=== PATIENT | female | born 1940 | race Two or more races ===

== ENCOUNTER 2018-08-05 13:41 | Emergency (ER) | payer MEDICARE, MEDICAID ==
[2018-08-05 14:18] LABS: HEMATOCRIT 37.4 % (41.0-60); HEMOGLOBIN 12.1 gm/dL (12-16); MEAN CELL VOLUME 83.8 fl (81-100); MEAN CORPUSCULAR HGB CONC 32.2 pg (28.0-36.0); MEAN PLATELET VOLUME 6.7 fl; PLATELET COUNT 221 Th/cmm (150-400); RED BLOOD COUNT 4.47 Mil/cmm (3.80-5.20); RED CELL DISTRIBUTION WIDTH 13.7 % (11.5-20.0); WHITE BLOOD COUNT 10.5 Th/cmm (4.8-10.8)
[2018-08-05] MEDS ORDERED: Acetaminophen 500 MG TAB ONE (14:22)
[2018-08-05] MEDS: Cefepime 1 GM in Sodium Chloride 0.9% 50 ML IV ONE (14:28)
[2018-08-05] MEDS: Lactated Ringer 1,000 ML IV ONE ×2 (14:34→20:23)
[2018-08-05 14:35] LABS: ALB/GLOB RATIO 1.9 (1.0-1.8); ALBUMIN 3.7 gm/dL (3.7-5.3); ALKALINE PHOSPHATASE 58 U/L (34-104); ANION GAP 11.3 (7.0-16.0); BILIRUBIN,TOTAL 0.5 mg/dL (0.3-1.0); BUN - UREA NITROGEN 20 mg/dL (7-25); CALCIUM SERUM 8.4 mg/dL (8.6-10.3); CARBON DIOXIDE 24.6 mEq/L (21.0-31.0); CHLORIDE 102 mEq/L (98-107); GLUCOSE 118 mg/dL (70-105); MAGNESIUM 1.8 mg/dL (1.9-2.7); PHOSPHOROUS 2.7 mg/dL (2.5-5.0); POTASSIUM SERUM 3.9 mEq/L (3.5-5.1); SGOT 12 U/L (13-39); SGPT/ALT 12 U/L (7-52); SODIUM SERUM 134 mEq/L (136-145); TOTAL PROTEIN,SERUM 5.7 gm/dL (6.0-8.3)
[2018-08-05] MEDS ORDERED: IOHEXOL 350mgI/mL 150mL IV ONE (15:13)
[2018-08-05 15:27] LABS: NEUTROPHILS 89 % (40-80)
[2018-08-05 15:28] LABS: BAND NEUTROPHILE 0 % (0-10); BASOPHIL 0 % (0-3); EOSINOPHIL 0 % (0-5); LYMPHOCYTE 4 % (20-50); MONOCYTE 7 % (2-10)
[2018-08-05 17:57] LABS: INF A SCREEN NEG FOR INF A; INF B SCREEN NEG FOR INF B
--- NOTE | 2018-08-05 18:48 | ED Physician Chart ---
ED Chief Complaint/HPI - Patient Information Date Seen:: 08/05/18 Time Seen:: 13:50 Chief Complaint:: SOB History of Present Illness:: SOB in a patient. [employer] paramedics responded to 911 call. Patient was found to be in respiratory distress with O2 sats of 86%. Patient was placed on 15 liters of oxygen. BP normal. Heart rate elevated in 150's. Allergies:: Allergies Allergy/AdvReac Type Severity Reaction Status Date / Time No Known Allergies Allergy Verified 08/05/18 13:58 Vitals:: Vital Signs - 8 hr 08/05/18 13:50 Temp 103.5 F HR 130 RR 16 BP 115/57 O2 Sat % 95 Historian:: Patient, Family Member, Other (paramedics) Review:: Nurse's Note Reviewed, EMS run form Reviewed ED Review of Systems - Review of Systems General/Constitutional: Fever, No chills, No weight loss, No weakness, No diaphoresis, No edema, No loss of appetite, Other (no respiratory distress with 15 liters of oxygen) Skin: No skin lesions, No rash, No bruising Head: No headache, No light-headedness Eyes: No loss of vision, No pain, No diplopia ENT: No earache, No nasal drainage, No sore throat, No tinnitus Neck: No neck pain, No swelling, No thyromegaly, No stiffness, No mass noted Cardio Vascular: No chest pain, No palpitations, No PND, No orthopnea, No edema Pulmonary: SOB, Cough, Sputum, No wheezing GI: No nausea, No vomiting, No diarrhea, No pain, No melena, No hematochezia, No constipation, No hematemesis G/U: No dysuria, No frequency, No hematuria, Other (incontinence of urine.) Musculoskeletal: No bone or joint pain, No back pain, No muscle pain Endocrine: No polyuria, No polydipsia Psychiatric: No prior psych history, No depression, No anxiety, No suicidal ideation Hematopoietic: No bruising, No lymphadenopathy Allergic/Immuno: No urticaria, No angioedema Neurological: No syncope, No focal symptoms, No weakness, No paresthesia, No headache, No seizure, No dizziness, No confusion, No vertigo ED Past Medical History - Past Medical History Obtainable: No Past Medical History: Other (rheumatoid arthritis; COPD) Psychiatricy History: Other (anxiety) Family Medical History - Family Member Mother History Unknown: Yes ED Physical Exam - Physical Examination General/Constitutional: Awake, Well-developed, well-nourished, Alert, No distress, GCS 15, Non-toxic appearing, Ambulatory Other Gen/Cons comments:: no respiratory distress with 15 liters of oxygen mask on. Head: Atraumatic Eyes: Lids, conjuctiva normal, PERRL, EOMI Skin: Nl inspection, No rash, No skin lesions, No ecchymosis, Well hydrated, No lymphadenopathy ENMT: External ears, nose nl Neck: Nontender, No nuchal rigidity, No stridor Other Respiratory comments:: purse lipped breathing. decreased breath sounds at right lung base. no respiratory distress with 15 liters of oxygen on. Cardio Vascular: No murmur, gallop, rubs, NL S1 S2 Other Cardio Vascular comments:: tachycardia. GI: No tenderness/rebounding/guarding, No organomegaly, No hernia, Normal BS's, Nondistended, No mass/bruits, No McBurney tenderness : No CVA tenderness Extremities: No tenderness or effusion, Full ROM, normal strength in all extremities, No edema, Normal digits & nails Neuro/Psych: Alert/oriented, Normal sensory exam, Normal motor strength, Judgement/insight normal, Mood normal, Normal gait, No focal deficits Misc: Normal back, No paraspinal tenderness ED Labs/Radiology/EKG Results - Lab Results Results: Laboratory Tests 08/05/18 08/05/18 08/05/18 14:00 14:00 14:00 WBC 10.5 RBC 4.47 Hgb 12.1 Hct 37.4 L MCV 83.8 MCH 27.0 MCHC Differential 32.2 RDW 13.7 Plt Count 221 MPV 6.7 Add Manual Diff YES Band Neutrophils % 0 Neutrophils (Manual) 89 H Lymphocytes 4 L Monocytes 7 Eosinophils 0 Basophils 0 D-Dimer Sodium 134 L Potassium 3.9 Chloride 102 Carbon Dioxide 24.6 Anion Gap 11.3 BUN 20 Creatinine 1.0 Est GFR ( Amer) TNP Est GFR (Non-Af Amer) TNP BUN/Creatinine Ratio 20.0 Glucose 118 H Whole Bld Lactic Acid Calcium 8.4 L Phosphorus 2.7 Magnesium 1.8 L Total Bilirubin 0.5 AST 12 L ALT 12 Alkaline Phosphatase 58 Creatine Kinase Total Protein 5.7 L Albumin 3.7 Globulin 2.0 Albumin/Globulin Ratio 1.9 H TSH Influenza A (Rapid) Influenza B (Rapid) 08/05/18 08/05/18 08/05/18 14:00 14:00 14:00 WBC RBC Hgb Hct MCV MCH MCHC Differential RDW Plt Count MPV Add Manual Diff Band Neutrophils % Neutrophils (Manual) Lymphocytes Monocytes Eosinophils Basophils D-Dimer 678 H Sodium Potassium Chloride Carbon Dioxide Anion Gap BUN Creatinine Est GFR ( Amer) Est GFR (Non-Af Amer) BUN/Creatinine Ratio Glucose Whole Bld Lactic Acid 0.94 Calcium Phosphorus Magnesium Total Bilirubin AST ALT Alkaline Phosphatase Creatine Kinase Total Protein Albumin Globulin Albumin/Globulin Ratio TSH 1.29 Influenza A (Rapid) Influenza B (Rapid) 08/05/18 08/05/18 14:00 17:00 WBC RBC Hgb Hct MCV MCH MCHC Differential RDW Plt Count MPV Add Manual Diff Band Neutrophils % Neutrophils (Manual) Lymphocytes Monocytes Eosinophils Basophils D-Dimer Sodium Potassium Chloride Carbon Dioxide Anion Gap BUN Creatinine Est GFR ( Amer) Est GFR (Non-Af Amer) BUN/Creatinine Ratio Glucose Whole Bld Lactic Acid Calcium Phosphorus Magnesium Total Bilirubin AST ALT Alkaline Phosphatase Creatine Kinase 45 Total Protein Albumin Globulin Albumin/Globulin Ratio TSH Influenza A (Rapid) NEG FOR INF A Influenza B (Rapid) NEG FOR INF B ED Assessment - Assessment General Assessment: EKG from 13:53:32 p.m. reveals sinus tachycardia with nonspecific ST T wave changes. CXR per my reading with right lower lobe haziness closest to the R hemidiaphragm. I went with patient to CT scanner on monitor and with oxygen. CT of head reveals no hemorrhage. Mild atrophy. ASVD. CT PE study: no evidence of PE. Right lower lobe infiltrate/pneumonia. Emphysematous changes. Diffuse ASVD. Probably hepatic cyst. called insurance [employer]. spoke with Dr. Lockwood who asked for me to get a flu swab on her and call him back with the results. no flu A or B. called Dr. Lockwood back to tell him. patient will be transferred to [facility] for insurance reasons. SIGN OUT GIVEN TO DR. YUEN AT 7:38 P.M. ED Septic Shock - . Is Septic Shock (SBP<90, OR Lactate>4 mmol\L) present?: No - <6hrs of presentation: Vital Signs: Vital Signs - 8 hr 08/05/18 13:50 Temp 103.5 F HR 130 RR 16 BP 115/57 O2 Sat % 95 ED Reassessment (Disposition) - Reassessment Reassessment Condition:: Improved - Diagnosis Diagnosis:: Hypoxia Right lower lobe infiltrate Respiratory distress, not present with oxygen COPD exacerbation Dehydration Elevated ddimer with no evidence of PE Low calcium Low magnesium, treated in ER Low protein Low albumin - Patient Disposition Discharge/Transfer:: Acute Care (other hosp) Condition at Disposition:: Stable, Improved
[2018-08-05] MEDS ORDERED: Magnesium Sulfate 1 gm/2 mL 2mL Vial IV ONE (19:31)
--- NOTE | 2018-08-06 08:42 | Diagnostic Imaging Report ---
Portable chest x-ray Time: 1351 History: Pneumonia Allowing for portable technique the heart size is normal. No focal pulmonary parenchymal processes. No hilar or mediastinal abnormalities. Mild right basilar atelectasis. Impression: No acute abnormalities.
--- NOTE | 2018-08-06 09:00 | Diagnostic Imaging Report ---
CT pulmonary angiogram with intravenous contrast History: Pulmonary embolism Total DLP equals 274 CTDI equals 7.0 Following administration of intravenous contrast, axial sections were obtained from a level above the clavicles down to a level below the diaphragm. The exam demonstrates normal opacification of the main right and left pulmonary arteries. No intraluminal lesions are seen. Specifically, no evidence of pulmonary embolism. There is preservation of normal fat planes throughout the mediastinum. No lymphadenopathy is seen. There is evidence for right lower lobe infiltrate extending from right infrahilar area. Emphysematous changes are noted. Diffuse atherosclerotic vascular calcifications appreciated. Incidentally noted 3.8 cm right hepatic cyst. IMPRESSION: No evidence for pulmonary emboli. Right lower lobe infiltrate pneumonia. Edema the changes. Atherosclerotic vascular disease. Impression: Negative examination.
--- NOTE | 2018-08-06 09:01 | Diagnostic Imaging Report ---
CT scan of the brain without intravenous contrast HISTORY: ALOC Total DLP equals 664 CTDI equals 36.7 Axial sections were obtained from the base of the skull to the vertex. There is prominence/enlargement of the ventricular system size. Associated enlargement of cerebral sulci and subarachnoid cisterns. Findings are consistent with changes of generalized cerebral atrophy. No acute parenchymal abnormalities. No acute cerebral hemorrhage. Hypodensity is seen within the supratentorial white matter regions without mass effect. The findings may be associated with chronic small vessel ischemic disease. No extra-axial masses or abnormal fluid collections. IMPRESSION: 1. No acute abnormalities 2. Cerebral atrophy 3. Supratentorial white matter changes that may reflect chronic small vessel ischemic disease
== END 2018-08-05 22:30 | disposition short-term general hospital (02) ==
LOC: ER 13:41 → EDBD 13:41 → ER 22:30
DX: J44.9 Chronic obstructive pulmonary disease, unspecified (principal); E86.0 Dehydration; E83.51 Hypocalcemia; E88.09 Other disorders of plasma-protein metabolism, not elsewhere classified; R91.8 Other nonspecific abnormal finding of lung field
CPT/HCPCS: 99285; 96365; 96367; 96375; 93005; 71045; 70450; 71275; 36415; 85379; 83605; 84443; 87804 ×2; 85007; 85025; 82550; 83735; 84100; 80053; 87040 ×2; J0692; J2405; J3475; Z7610